=== PATIENT | female | born 1970 | race Caucasian/White ===

== ENCOUNTER 2018-08-23 07:53 | Emergency (ER) | payer OTHER ==
[2018-08-23 08:00] VITALS: BP 124/75; PULSE 74; TEMP 98.2; BMI 33.9
[2018-08-23] MEDS ORDERED: SODIUM CHLORIDE 1,000 ML IV STA (08:53)
[2018-08-23] MEDS ORDERED: KETOROLAC TROMETHAMINE 30 MG/1 ML VIAL IVPUSH ONE (08:53)
--- NOTE | 2018-08-23 09:02 | PDOC ---
History of Present Illness - General Chief Complaint: Pain Stated Complaint: ABDOMINAL PAIN,DIARRHEA Time Seen by Provider: 08/23/18 08:46 History Source: Patient Exam Limitations: No Limitations - History of Present Illness Travel History: No Initial Comments: 08/23/18 09:08 47-year-old female with no past medical history presents to the ED with complaints of mid abdominal cramping associated with diarrhea for the past 2 days. Patient denies bloody stool, fever, chills, nausea, urinary complaints, back pain, or irregular menses. Patient denies GI history, recent travel, recent illness, EtOH use. Timing/Duration: reports: intermittent Quality: reports: moderate, cramping Abdominal Pain Onset Location: reports: periumbilical Pain Radiation: reports: LUQ, periumbilical Activities at Onset: reports: none Aggravating Factors: improves with: None Alleviating Factors: improves with: None Past History - Travel Traveled outside of the country in the last 30 days: No Close contact w/someone who was outside of country & ill: No - Past Medical History Allergies/Adverse Reactions: Allergies Allergy/AdvReac Type Severity Reaction Status Date / Time Penicillins Allergy Verified 04/05/18 02:09 Home Medications: Ambulatory Orders Ondansetron [Zofran *Odt*] 4 mg SL TID #30 od.tablet 04/05/18 COPD: No Diabetes: No HTN: No Hypercholesterolemia: No - Immunization History Immunization Up to Date: Yes - Suicide/Smoking/Psychosocial Hx Smoking History: Never smoked Have you smoked in the past 12 months: No Hx Alcohol Use: No Drug/Substance Use Hx: No Substance Use Type: None Patient Lives Alone: No Lives with/in: spouse/SO Abd/GI Specific PMHX - Complaint Specific PMHX GERD: No Review of Systems - Review of Systems Able to Perform ROS?: Yes Constitutional: No: Symptoms Reported HEENTM: No: Symptoms Reported Respiratory: No: Symptoms reported Cardiac (ROS): No: Symptoms Reported ABD/GI: Yes: Diarrhea, Abdominal cramping : No: Symptoms Reported Musculoskeletal: No: Symptoms Reported Integumentary: No: Symptoms Reported Neurological: No: Symptoms reported *Physical Exam - Vital Signs Last Vital Signs Temp Pulse Resp BP Pulse Ox 98.2 F 74 16 124/75 99 08/23/18 07:56 08/23/18 07:56 08/23/18 07:56 08/23/18 07:56 08/23/18 07:56 - Physical Exam General Appearance: Yes: Nourished, Appropriately Dressed. No: Apparent Distress HEENT: positive: EOMI, SHANON. negative: Pale Conjunctivae Neck: positive: Normal Thyroid Respiratory/Chest: positive: Lungs Clear, Normal Breath Sounds. negative: Respiratory Distress, Accessory Muscle Use Cardiovascular: positive: Regular Rhythm, Regular Rate. negative: Murmur Gastrointestinal/Abdominal: positive: Normal Bowel Sounds, Soft, Tenderness ( periumbilical , left upper quadrant lower epigastric ). negative: Distended, Guarding, Rebound, Hernia Musculoskeletal: negative: CVA Tenderness Integumentary: positive: Normal Color, Warm, Moist Neurologic: positive: Motor Strength 5/5 (ambulatory) Moderate Sedation - Procedure Monitoring Vital Signs: Procedure Monitoring Vital Signs Temperature 98.2 F 08/23/18 07:56 Pulse Rate 74 08/23/18 07:56 Respiratory Rate 16 08/23/18 07:56 Blood Pressure 124/75 08/23/18 07:56 O2 Sat by Pulse Oximetry (%) 99 08/23/18 07:56 ED Treatment Course - LABORATORY CBC & Chemistry Diagram: 08/23/18 09:13 08/23/18 09:13 - RADIOLOGY Radiology Studies Ordered: Category Date Time Status ABDOMEN & PELVIS CT WITH CONTR [CT] Stat CT Scan 08/23/18 08:53 Ordered Medical Decision Making - Medical Decision Making 08/23/18 09:01 Chief complaint: Abdominal pain with diarrhea 2 days no other complaints no GI history Exam: No abdominal distention, tenderness periumbilical left upper quadrant and lower epigastric region. Plan: labs, urine, Toradol, IV fluids and abdominal/pelvic CT with IV by mouth contrast 08/23/18 13:48 Ultrasound was no evidence of colitis and diverticulitis appendicitis, mesenteric stranding or other acute pathology. Noted left adnexal cyst measuring 2.7 cm. Patient states feeling better. Will discharge patient home with recommendations to follow-up with PCP/surgeon if her umbilical pain continues. Laboratory Tests 08/23/18 08/23/18 08/23/18 09:12 09:13 09:13 WBC 7.7 Hgb 11.1 Hct 33.6 MCV 73.9 L MCH 24.4 L RDW 17.5 H Plt Count 453 H MPV 7.4 L Neutrophils % 55.4 D Sodium 139 Potassium 4.4 Chloride 108 H BUN 10 Creatinine 0.6 Magnesium 2.1 Total Bilirubin 0.3 AST 16 ALT 20 Alkaline Phosphatase 98 Total Protein 7.4 Albumin 3.6 Lipase Urine Ketones Negative Urine Nitrite Negative Urine HCG, Qual Negative 08/23/18 09:13 WBC Hgb Hct MCV MCH RDW Plt Count MPV Neutrophils % Sodium Potassium Chloride BUN Creatinine Magnesium Total Bilirubin AST ALT Alkaline Phosphatase Total Protein Albumin Lipase 132 Urine Ketones Urine Nitrite Urine HCG, Qual *DC/Admit/Observation/Transfer Diagnosis at time of Disposition: Abdominal pain, Diarrhea - Discharge Dispostion Disposition: HOME Condition at time of disposition: Improved - Referrals Referrals: Yrn Heredia MD [Primary Care Provider] - Naseem Ovalles MD [Staff Physician] - - Patient Instructions Printed Discharge Instructions: Abdominal Hernia, DI for Diarrhea and Traveler' s Diarrhea -- Adult Additional Instructions: At this time your CAT scan lab work and urine were negative. There is note of a small umbilical hernia and I have given you a referral to a surgeon if symptoms of periumbilical pain continues. Otherwise follow-up with her doctor as needed and return to ED if symptoms worsen - Post Discharge Activity
[2018-08-23 09:30] LABS: URINE APPEARANCE SLCLOUDY; URINE BILIRUBIN NEGATIVE (<2.0 mg/dL); URINE COLOR LTYELLOW; URINE GLUCOSE (UA) NEGATIVE (NEGATIVE); URINE KETONE NEGATIVE (NEGATIVE); URINE LEUK ESTERASE NEGATIVE (NEGATIVE); URINE NITRITE NEGATIVE (NEGATIVE); URINE PROTEIN NEGATIVE (NEGATIVE); URINE UROBILINOGEN NEGATIVE mg/dL (0.2-1.0)
[2018-08-23 09:32] LABS: BASO % 0.7 % (0-2.0); EOS % 3.6 % (0-4.5); HEMATOCRIT 33.6 % (32.4-45.2); HEMOGLOBIN 11.1 GM/dL (10.7-15.3); LYMPH % 33.1 % (8-40); MCH 24.4 pg (25.7-33.7); MEAN CELL VOLUME 73.9 fl (80-96); MEAN PLT VOLUME 7.4 fl (7.5-11.1); MONO % 7.2 % (3.8-10.2); NEUT % 55.4 % (42.8-82.8); PLATELET COUNT 453 K/MM3 (134-434); RBC 4.54 M/mm3 (3.60-5.2); RDW 17.5 % (11.6-15.6); WHITE BLOOD COUNT 7.7 K/mm3 (4.0-10.0)
[2018-08-23 09:32] LABS: HCG,QUALITATIVE URINE Negative
[2018-08-23] MEDS ORDERED: KETOROLAC TROMETHAMINE 30 MG/1 ML VIAL ONE (09:46)
[2018-08-23 10:07] LABS: ALBUMIN 3.6 g/dl (3.4-5.0); ALK PHOS 98 U/L (45-117); ANION GAP 8 MMOL/L (8-16); BILIRUBIN,TOTAL 0.3 mg/dL (0.2-1); BLOOD UREA NITROGEN 10 mg/dL (7-18); CALCIUM 8.5 mg/dL (8.5-10.1); CHLORIDE 108 mmol/L (98-107); CO2 23 mmol/L (21-32); CREATININE 0.6 mg/dL (0.55-1.3); GLUCOSE,RANDOM 91 mg/dL (74-106); MAGNESIUM 2.1 mg/dL (1.8-2.4); POTASSIUM 4.4 mmol/L (3.5-5.1); SGOT/AST 16 U/L (15-37); SGPT/ALT 20 U/L (13-61); SODIUM 139 mmol/L (136-145); TOT PROT 7.4 g/dl (6.4-8.2)
== END 2018-08-23 14:03 | disposition home or self-care (01) ==
LOC: JER 07:53
PROC: 3E0337Z Introduction of Electrolytic and Water Balance Substance into Peripheral Vein, Percutaneous Approach (ICD-10-PCS; principal; 2018-08-23)
PROC: 3E0333Z Introduction of Anti-inflammatory into Peripheral Vein, Percutaneous Approach (ICD-10-PCS; 2018-08-23)
DX: R10.9 Unspecified abdominal pain (principal); R19.7 Diarrhea, unspecified
CPT/HCPCS: 36415; 74177-TC; 80053; 81003; 83690; 83735; 84703; 85025; 87086; 99283-25; J7030; Q9967

== ENCOUNTER 2018-11-14 11:11 | Emergency (ER) | payer OTHER ==
[2018-11-14 11:25] VITALS: TEMP 98; BMI 32.2
[2018-11-14] MEDS ORDERED: SODIUM CHLORIDE 1,000 ML IV STA (11:55)
[2018-11-14] MEDS ORDERED: FAMOTIDINE 20 MG/50 ML IVPB 20 MG/50 ML MG IVPB ONE ×2 (11:55→12:18)
[2018-11-14] MEDS ORDERED: ONDANSETRON 4 MG/2 ML VIAL IVPB ONE (11:55)
[2018-11-14] MEDS ORDERED: ACETAMINOPHEN 1000 MG/100 ML VIAL (NON FORMULARY) IVPB ONE (11:55)
--- NOTE | 2018-11-14 12:03 | PDOC ---
History of Present Illness - General Chief Complaint: Vomiting/Diarrhea Stated Complaint: VOMITING/ DIARRHEA Time Seen by Provider: 11/14/18 11:32 - History of Present Illness Initial Comments: 11/14/18 11:58 48 F with no PMH presents to ED with 1 day of abdominal pain, nausea, vomiting, and diarrhea. Pt states that her symptoms started last night at around 5PM. She reports 8 episodes of NBNB emesis associated with several episodes of watery brown diarrhea. Endorses mid-epigastric cramping associated with her symptoms. Denies any F/C. Denies CP/SOB. Denies any abdominal distention. Past History - Past Medical History Allergies/Adverse Reactions: Allergies Allergy/AdvReac Type Severity Reaction Status Date / Time Penicillins Allergy Verified 11/14/18 11:22 Home Medications: Ambulatory Orders NK [No Known Home Medication] 11/14/18 COPD: No Diabetes: No HTN: No Hypercholesterolemia: No - Immunization History Immunization Up to Date: Yes - Suicide/Smoking/Psychosocial Hx Smoking History: Never smoked Have you smoked in the past 12 months: No Hx Alcohol Use: No Drug/Substance Use Hx: No Substance Use Type: None Abd/GI Specific PMHX - Complaint Specific PMHX GERD: No Review of Systems - Review of Systems Comments:: 11/14/18 12:03 GENERAL/CONSTITUTIONAL: No fever or chills. No weakness. HEAD, EYES, EARS, NOSE AND THROAT: No change in vision. No ear pain or discharge. No sore throat. CARDIOVASCULAR: No chest pain, no shortness of breath, no loss of consciousness RESPIRATORY: No cough, wheezing, or hemoptysis. GASTROINTESTINAL: + abdominal pain, + nausea, + vomiting, + diarrhea GENITOURINARY: No dysuria, frequency, or change in urination. MUSCULOSKELETAL: No joint or muscle swelling or pain. No neck or back pain. SKIN: No rash NEUROLOGIC: No vertigo, no change in strength/sensation. ENDOCRINE: No increased thirst. No abnormal weight change. HEMATOLOGIC/LYMPHATIC: No anemia, easy bleeding, or history of blood clots. ALLERGIC/IMMUNOLOGIC: No hives or skin allergy. *Physical Exam - Vital Signs Last Vital Signs Temp Pulse Resp BP Pulse Ox 98.0 F 86 18 123/72 98 11/14/18 11:23 11/14/18 11:23 11/14/18 11:23 11/14/18 11:23 11/14/18 11:23 - Physical Exam Comments: 11/14/18 12:03 "GENERAL: Awake, alert, and fully oriented, in no acute distress. HEAD: No signs of trauma EYES: PERRLA, EOMI, sclera anicteric, conjunctiva clear ENT: Auricles normal inspection, hearing grossly normal, nares patent, oropharynx clear without exudates. Moist mucosa NECK: Nontender, no stepoffs, Normal ROM, supple, no lymphadenopathy, JVD, or masses LUNGS: Breath sounds equal, clear to auscultation bilaterally. No wheezes, and no crackles HEART: Regular rate and rhythm, normal S1 and S2, no murmurs, rubs or gallops ABDOMEN: Soft, + epigastric tenderness, normoactive bowel sounds. No guarding, no rebound. No masses EXTREMITIES: Normal range of motion, no edema. No clubbing or cyanosis. No cords, erythema, or tenderness NEUROLOGICAL: Cranial nerves II through XII intact. 5/5 strength and sensation in all extremities, Normal speech, normal gait, normal cerebellar function SKIN: Warm, Dry, normal turgor, no rashes or lesions noted. Moderate Sedation - Procedure Monitoring Vital Signs: Procedure Monitoring Vital Signs Temperature 98.0 F 11/14/18 11:23 Pulse Rate 86 11/14/18 11:23 Respiratory Rate 18 11/14/18 11:23 Blood Pressure 123/72 11/14/18 11:23 O2 Sat by Pulse Oximetry (%) 98 11/14/18 11:23 ED Treatment Course - LABORATORY CBC & Chemistry Diagram: 11/14/18 12:10 11/14/18 12:10 Medical Decision Making - Medical Decision Making 11/14/18 12:03 48 F with N+V+D and epigastric pain. Suspect viral gastroenteritis. Negative dean's on exam. No lower abdominal tenderness to suggest appy or colitis/ diverticulitis. Pt was seen here 3 months ago for similar complaint and had negative CT at that time. - Labs, UA - IVF, tylenol, zofran, pepcid 11/14/18 15:[address] unremarkable Pt reassessed - pain improved, tolerating PO Pt is well appearing, with normal vitals. Clinically stable for DC at this time. I discussed the physical exam findings, ancillary test results and final diagnoses with the patient. I answered all of the patient's questions. The patient was satisfied with the care received and felt comfortable with the discharge plan and treatment plan. The patient agrees to follow up with the primary care physician within 24-72 hours. *DC/Admit/Observation/Transfer Diagnosis at time of Disposition: Diarrhea, Abdominal pain, Nausea & vomiting - Discharge Dispostion Disposition: HOME - Referrals Referrals: Yrn Heredia MD [Primary Care Provider] - - Patient Instructions Printed Discharge Instructions: DI for Viral Gastroenteritis -- Adult Additional Instructions: Drink plenty of fluids. If you experience worsening pain, nausea, vomiting, fevers, or any other concerning symptoms, return to the ER immediately. Otherwise, follow up with your primary doctor tomorrow. - Post Discharge Activity - Attestations Physician Attestion: 11/14/18 15:02 I, Dr. Naseem Kenney MD, attest that this document has been prepared under my direction and personally reviewed by me in its entirety. I further attest, that it accurately reflects all work, treatment, procedures and medical decision -making performed by me.
[2018-11-14] MEDS ORDERED: ACETAMINOPHEN INJECTION 100 ML IVPB ONE (12:17)
[2018-11-14] MEDS ORDERED: ONDANSETRON 4 MG/2 ML VIAL ONE (12:18)
[2018-11-14 12:21] LABS: BASO % 0.3 % (0-2.0); EOS % 0.7 % (0-4.5); HEMATOCRIT 34.1 % (32.4-45.2); LYMPH % 21.4 % (8-40); MCH 23.2 pg (25.7-33.7); MCHC 32.3 g/dl (32.0-36.0); MEAN PLT VOLUME 6.9 fl (7.5-11.1); MONO % 6.8 % (3.8-10.2); NEUT % 70.8 % (42.8-82.8); PLATELET COUNT 502 K/MM3 (134-434); RBC 4.73 M/mm3 (3.60-5.2); RDW 17.8 % (11.6-15.6); WHITE BLOOD COUNT 6.9 K/mm3 (4.0-10.0)
[2018-11-14 12:25] LABS: URINE APPEARANCE CLEAR; URINE BILIRUBIN NEGATIVE (<2.0 mg/dL); URINE COLOR LTYELLOW; URINE GLUCOSE (UA) NEGATIVE (NEGATIVE); URINE KETONE NEGATIVE (NEGATIVE); URINE LEUK ESTERASE NEGATIVE (NEGATIVE); URINE NITRITE NEGATIVE (NEGATIVE); URINE PROTEIN NEGATIVE (NEGATIVE); URINE UROBILINOGEN NEGATIVE mg/dL (0.2-1.0)
[2018-11-14 12:50] LABS: ALBUMIN 3.8 g/dl (3.4-5.0); ALK PHOS 93 U/L (45-117); ANION GAP 7 MMOL/L (8-16); BILIRUBIN,TOTAL 0.5 mg/dL (0.2-1); BLOOD UREA NITROGEN 6 mg/dL (7-18); CHLORIDE 108 mmol/L (98-107); CO2 24 mmol/L (21-32); CREATININE 0.6 mg/dL (0.55-1.3); GLUCOSE,RANDOM 84 mg/dL (74-106); LIPASE 98 U/L (73-393); POTASSIUM 3.8 mmol/L (3.5-5.1); SGOT/AST 18 U/L (15-37); SGPT/ALT 21 U/L (13-61); SODIUM 139 mmol/L (136-145); TOT PROT 7.7 g/dl (6.4-8.2)
[2018-11-14 12:56] LABS: EPI CELLS FEW /HPF (FEW)
[2018-11-14 15:10] VITALS: BP 121/71; PULSE 79
== END 2018-11-14 15:11 | disposition home or self-care (01) ==
LOC: JER 11:11
PROC: 3E033NZ Introduction of Analgesics, Hypnotics, Sedatives into Peripheral Vein, Percutaneous Approach (ICD-10-PCS; principal; 2018-11-14)
PROC: 3E033GC Introduction of Other Therapeutic Substance into Peripheral Vein, Percutaneous Approach (ICD-10-PCS; 2018-11-14)
PROC: 3E0337Z Introduction of Electrolytic and Water Balance Substance into Peripheral Vein, Percutaneous Approach (ICD-10-PCS; 2018-11-14)
DX: R11.2 Nausea with vomiting, unspecified (principal); R19.7 Diarrhea, unspecified; R10.9 Unspecified abdominal pain
CPT/HCPCS: 36415; 74177-TC; 80053; 81003; 81015; 82550; 83690; 84484; 84703; 85025; 96361; 96365; 96375; 99282-25; J0131; J7030

== ENCOUNTER 2023-04-17 18:01 | Emergency (ER) | payer OTHER ==
[2023-04-17 18:23] VITALS: BP 154/91; PULSE 73; RESP 18; TEMP 98.7; BMI 33.2
[2023-04-17] MEDS ORDERED: IBUPROFEN 600 MG TABLET (FP) PO ONE ×2 (19:39→19:49)
[2023-04-17 20:53] LABS: POTASSIUM 4.3 mmol/L (3.5-5.1)
[2023-04-17 20:54] LABS: CALCIUM 9.2 mg/dL (8.5-10.1)
[2023-04-17 20:55] LABS: BLOOD UREA NITROGEN 7.8 mg/dL (7-18)
[2023-04-17 20:56] LABS: BASO % 0.3 % (0-2.0); EOS % 1.9 % (0-4.5); HEMATOCRIT 41.6 % (32.4-45.2); LYMPH % 37.5 % (8-40); MCH 29.4 pg (25.7-33.7); MCHC 33.7 g/dl (32.0-36.0); MEAN CELL VOLUME 87.3 fl (80-96); MEAN PLT VOLUME 7.7 fl (7.5-11.1); MONO % 6.8 % (3.8-10.2); NEUT % 53.5 % (42.8-82.8); PLATELET COUNT 415 10^3/uL (134-434); RBC 4.77 M/mm3 (3.60-5.2); RDW 13.9 % (11.6-15.6); WHITE BLOOD COUNT 8.5 K/mm3 (4.0-10.0)
[2023-04-17 20:58] LABS: CREATININE 0.6 mg/dL (0.55-1.3)
[2023-04-17] MEDS ORDERED: CLINDAMYCIN HCL 150 MG CAPSULE (FP) PO ONE (22:09)
[2023-04-17] MEDS ORDERED: CLINDAMYCIN HCL 150 MG CAPSULE (FP) ONE (22:11)
== END 2023-04-17 22:20 | disposition home or self-care (01) ==
LOC: JERFT 18:01
DX: L03.811 Cellulitis of head [any part, except face] (principal); H92.03 Otalgia, bilateral; H93.8X3 Other specified disorders of ear, bilateral; M54.2 Cervicalgia
CPT/HCPCS: 36415; 70491-TC; 80048; 85025; 99285-25; Q9967

== ENCOUNTER 2023-07-13 09:49 | Observation (INO) | payer OTHER ==
[2023-07-13] MEDS ORDERED: SODIUM CHLORIDE 1,000 ML IV SCH (10:30)
[2023-07-13] MEDS ORDERED: ACETAMINOPHEN 1000 MG/100 ML BAG IVPB ONE ×2 (11:07→11:14)
[2023-07-13] MEDS ORDERED: METOCLOPRAMIDE HCL INJECTION 10 MG/2 ML VIAL IVPUSH ONE (11:14)
[2023-07-13] MEDS ORDERED: METOCLOPRAMIDE HCL INJECTION 10 MG/2 ML VIAL ONE (11:28)
[2023-07-13] MEDS ORDERED: ACETAMINOPHEN INJECTION 100 ML IVPB ONE ×2 (11:29→17:16)
[2023-07-13 11:35] LABS: BASO % 0.3 % (0-2.0); EOS % 1.1 % (0-4.5); HEMATOCRIT 41.3 % (32.4-45.2); HEMOGLOBIN 14.3 GM/dL (10.7-15.3); LYMPH % 19.9 % (8-40); MCH 30.4 pg (25.7-33.7); MCHC 34.6 g/dl (32.0-36.0); MEAN CELL VOLUME 87.6 fl (80-96); MEAN PLT VOLUME 7.8 fl (7.5-11.1); MONO % 7.7 % (3.8-10.2); PLATELET COUNT 369 10^3/uL (134-434); RBC 4.71 M/mm3 (3.60-5.2)
[2023-07-13 11:40] LABS: INR 1.05 (0.83-1.09); PROTHROMBIN TIME (PATIENT) 12.2 SEC (9.7-13.0)
[2023-07-13 11:42] LABS: ACTIVATED PTT 32.7 SECONDS (25.2-36.5)
[2023-07-13 11:58] LABS: ALBUMIN 3.7 g/dl (3.4-5.0); CALCIUM 8.8 mg/dL (8.5-10.1)
[2023-07-13 12:00] LABS: BLOOD UREA NITROGEN 10.5 mg/dL (7-18)
[2023-07-13 12:02] LABS: CREATININE 0.6 mg/dL (0.55-1.3)
[2023-07-13 12:03] LABS: TOT PROT 7.5 g/dl (6.4-8.2)
[2023-07-13 12:04] LABS: BILIRUBIN,TOTAL 0.7 mg/dL (0.2-1)
[2023-07-13 13:06] LABS: PH,URINE 5.5 (5.0-8.0); URINE APPEARANCE CLEAR; URINE BILIRUBIN NEGATIVE (NEGATIVE); URINE COLOR YELLOW; URINE GLUCOSE (UA) NEGATIVE (NEGATIVE); URINE KETONE NEGATIVE (NEGATIVE); URINE LEUK ESTERASE NEGATIVE (NEGATIVE); URINE NITRITE NEGATIVE (NEGATIVE); URINE PROTEIN NEGATIVE (NEGATIVE); URINE UROBILINOGEN 0.2 mg/dL (0.2-1.0)
[2023-07-13] MEDS: ACETAMINOPHEN 1000 MG/100 ML BAG IVPB PRN (17:23)
[2023-07-13] MEDS ORDERED: ONDANSETRON 4 MG/2 ML VIAL IVPUSH ONE (19:22)
[2023-07-13] MEDS ORDERED: ONDANSETRON 4 MG/2 ML VIAL ONE (19:23)
[2023-07-13] MEDS ORDERED: LORazepam 1 MG TABLET PO ONE (20:24)
[2023-07-13] MEDS ORDERED: ONDANSETRON 4 MG/2 ML VIAL IVPUSH PRN (20:25)
[2023-07-14] MEDS ORDERED: ACETAMINOPHEN INJECTION 100 ML IVPB ONE (05:53)
[2023-07-14] MEDS: ACETAMINOPHEN 1000 MG/100 ML BAG IVPB PRN (06:14)
[2023-07-14 07:21] LABS: BASO % 0.3 % (0-2.0); EOS % 0.4 % (0-4.5); HEMATOCRIT 40.6 % (32.4-45.2); HEMOGLOBIN 13.6 GM/dL (10.7-15.3); LYMPH % 18.4 % (8-40); MCH 29.5 pg (25.7-33.7); MCHC 33.4 g/dl (32.0-36.0); MEAN CELL VOLUME 88.2 fl (80-96); MEAN PLT VOLUME 7.6 fl (7.5-11.1); MONO % 6.8 % (3.8-10.2); NEUT % 74.1 % (42.8-82.8); PLATELET COUNT 344 10^3/uL (134-434); RDW 13.8 % (11.6-15.6); WHITE BLOOD COUNT 7.3 K/mm3 (4.0-10.0)
[2023-07-14 07:36] LABS: POTASSIUM 3.7 mmol/L (3.5-5.1)
[2023-07-14 07:38] LABS: CALCIUM 8.3 mg/dL (8.5-10.1)
[2023-07-14 07:39] LABS: ALBUMIN 3.3 g/dl (3.4-5.0); BLOOD UREA NITROGEN 9.7 mg/dL (7-18)
[2023-07-14 07:42] LABS: CREATININE 0.7 mg/dL (0.55-1.3)
[2023-07-14 07:43] LABS: BILIRUBIN,TOTAL 0.8 mg/dL (0.2-1); TOT PROT 6.6 g/dl (6.4-8.2)
[2023-07-14] MEDS ORDERED: PANTOPRAZOLE 40 MG TABLET PO SCH (10:00)
[2023-07-14] MEDS: ENOXAPARIN NA (PORCINE) 40 MG/0.4 ML DISP.SYRIN SQ SCH (10:05)
[2023-07-14] MEDS: DEXTROSE 5%-0.45% SALINE 1,000 ML IV SCH (21:00)
[2023-07-14 22:30] VITALS: BMI 33.6
[2023-07-15] MEDS: ENOXAPARIN NA (PORCINE) 40 MG/0.4 ML DISP.SYRIN SQ SCH (09:47)
[2023-07-15 11:03] VITALS: BP 124/73; PULSE 61; RESP 16; TEMP 98.2
[2023-07-15] MEDS: DEXTROSE 5%-0.45% SALINE 1,000 ML IV SCH (12:59)
== END 2023-07-15 15:59 | disposition home or self-care (01) ==
LOC: JER 09:49 → JERBED 13:25 → J4W 07-14 20:17
PROVIDERS: ADMIT Internal Medicine; ATTEND Internal Medicine
PROC: 3E033NZ Introduction of Analgesics, Hypnotics, Sedatives into Peripheral Vein, Percutaneous Approach (ICD-10-PCS; principal; 2023-07-13)
PROC: 3E033GC Introduction of Other Therapeutic Substance into Peripheral Vein, Percutaneous Approach (ICD-10-PCS; 2023-07-13)
PROC: 3E023GC Introduction of Other Therapeutic Substance into Muscle, Percutaneous Approach (ICD-10-PCS; 2023-07-13)
PROC: 3E0337Z Introduction of Electrolytic and Water Balance Substance into Peripheral Vein, Percutaneous Approach (ICD-10-PCS; 2023-07-13)
DX: K52.9 Noninfective gastroenteritis and colitis, unspecified (principal); R51.9 Headache, unspecified; M19.90 Unspecified osteoarthritis, unspecified site; R20.0 Anesthesia of skin; M54.9 Dorsalgia, unspecified; R11.0 Nausea; K59.00 Constipation, unspecified; G89.29 Other chronic pain; Z88.0 Allergy status to penicillin
CPT/HCPCS: 36415; 70450-TC; 70551-TC; 74021-TC-FY; 74177-TC; 76700-TC; 80053; 80061; 81003; 82550; 82962; 83036; 84484; 85025; 85610; 85651; 85730; 86140; 86850; 86900; 86901; 87045; 87046; 87186; 87205; 87324; 87449; 93005; 93010; 93306-TC; 96361; 96365; 96372; 96375; 96376; 99285-25; G0378

== ENCOUNTER 2023-10-10 12:51 | Emergency (ER) | payer OTHER ==
[2023-10-10 13:03] VITALS: BMI 33.5
[2023-10-10] MEDS ORDERED: IBUPROFEN 600 MG TABLET (FP) PO ONE ×2 (13:40→13:55)
[2023-10-10] MEDS ORDERED: ACETAMINOPHEN 500 MG TABLET (FP) PO ONE (13:54)
[2023-10-10] MEDS ORDERED: ACETAMINOPHEN 500 MG TABLET (FP) ONE (13:56)
[2023-10-10 14:23] VITALS: BP 134/87; PULSE 69; RESP 18; TEMP 98.1
== END 2023-10-10 14:36 | disposition home or self-care (01) ==
LOC: JER 12:51 → JERFT 12:51
DX: S80.02XA Contusion of left knee, initial encounter (principal); M25.562 Pain in left knee; W00.0XXA Fall on same level due to ice and snow, initial encounter
CPT/HCPCS: 73562-TC-LT-FY; 99283-25